=== PATIENT | male | born 1985 | race Caucasian/White ===

== ENCOUNTER 2022-03-26 22:23 | Emergency (ER) | payer SELFPAY ==
[~2022-03-26] VITALS: Ht 180.3 cm; Wt 144.0 kg
[2022-03-27] MEDS ORDERED: BACITRACIN ZINC OINT UDPKT TOP ONE (02:45)
[2022-03-27] MEDS ORDERED: HYDROCODONE/ACETAMINOPHEN 5/325MG TABLET PO ONE (02:45)
[2022-03-27] MEDS ORDERED: TETANUS, DIPHTHERIA, PERTUSSIS VAC/PF 0.5ML (>10YR OLD) IM ONE (02:45)
[2022-03-27 03:09] VITALS: BP 118/77
[2022-03-27] MEDS ORDERED: BO1 TP (04:24)
[2022-03-27] MEDS ORDERED: HYDR-4001 MT (04:24)
[2022-03-27] MEDS ORDERED: AMOX1TAB16 MT (04:24)
== END 2022-03-27 04:57 | disposition home or self-care (01) ==
LOC: ER 22:23
DX: S61.252A Open bite of right middle finger without damage to nail, initial encounter (principal); S61.254A Open bite of right ring finger without damage to nail, initial encounter; S20.211A Contusion of right front wall of thorax, initial encounter; M54.59 Other low back pain; Y04.1XXA Assault by human bite, initial encounter; Y93.89 Activity, other specified; Y92.89 Other specified places as the place of occurrence of the external cause
CPT/HCPCS: 71045; 73130; 90715; 99284